=== PATIENT | female | born 1970 | race Two or more races ===

== ENCOUNTER 2021-04-25 12:12 | Outpatient (CLI) | payer OTHER | END 2021-04-25 12:25 | disposition home or self-care (01) | LOC: SONOGRAMA 12:12 → MAMO-SONO 15:00 | PROVIDERS: ATTEND Specialist | DX: E04.2 Nontoxic multinodular goiter (principal); R13.19 Other dysphagia; Z13.29 Encounter for screening for other suspected endocrine disorder ==

== ENCOUNTER 2021-05-13 10:49 | Outpatient (CLI) | payer OTHER | END 2021-05-13 10:57 | disposition home or self-care (01) | LOC: SONOGRAMA 10:49 | PROVIDERS: ATTEND Pathology Anatomic Pathology & Clinical Pathology | DX: E04.1 Nontoxic single thyroid nodule (principal) ==